=== PATIENT | male | born 1990 | race Caucasian/White ===

== ENCOUNTER 2018-03-11 12:59 | Emergency (ER) | payer BC, OTHER ==
[~2018-03-11] VITALS: Ht 185.4 cm; Wt 86.2 kg
--- NOTE | 2018-03-11 13:14 | ED GU-Male ---
General Stated Complaint: SWOLLEN TESTICLE Source: patient Exam Limitations: no limitations History of Present Illness Date Seen by Provider: Mar 11, 2018 Time Seen by Provider: 13:12 Initial Comments Patient is a 27-year-old male who presents to the emergency room with complaints of right-sided swollen testicle for one week. He reports that 1 week ago started with bilateral swelling of his testicles but now is just localized to the right testicle. He reports tenderness to the touch. He denies any discharge, painful urination, or painful ejaculation. Timing/Duration: week Severity/Quality: moderate Location: scrotal Radiation: none Activities at Onset: none Allergies and Home Medications Allergies Coded Allergies: No Known Drug Allergies (Unverified , 03/11/18) Home Medications Doxycycline Hyclate 100 Mg Capsule, 100 MG PO BID, (Reported) 10 DAY SUPPLY FILLED 03-11-18 Hydrocodone/Acetaminophen 1 Each Tablet, 1-2 TAB PO Q6H PRN for PAIN-MODERATE, ( Reported) Ibuprofen 200 Mg Tablet, 800 MG PO TID PRN for PAIN-MILD, (Reported) Patient Home Medication List Home Medication List Reviewed: Yes Review of Systems Constitutional: see HPI; No chills, No fever EENTM: no symptoms reported Respiratory: see HPI; No dyspnea on exertion, No hemoptysis Cardiovascular: see HPI; No chest pain, No edema Gastrointestinal: see HPI; No abdominal pain, No vomiting Genitourinary: see HPI; denies burning, denies discharge, denies dysuria, denies frequency, denies flank pain, denies hematuria; pain (right-sided testicular pain and swelling) Musculoskeletal: see HPI; No back pain, No gout Skin: see HPI; No change in color, No change in hair/nails Psychiatric/Neurological: See HPI; Denies Anxiety, Denies Depressed, Denies Emotional Problems Endocrine: See HPI; Denies Excessive Sweating, Denies Flushing Hematologic/Lymphatic: See HPI; Denies Anemia, Denies Blood Clots All Other Systemes Reviewed Negative Unless Noted: Yes Past Ruzqhqe-Wrkbyc-Noylel Hx Past Med/Social Hx: Reviewed Nursing Past Med/Soc Hx Patient Social History Recent Foreign Travel: No Contact w/Someone Who Travel: No Family Medical History Reviewed Nursing Family Hx Physical Exam Vital Signs Vital Signs - First Documented 03/11/18 13:13 Temp 99.2 Pulse 88 Resp 18 B/P (MAP) 116/86 (96) Pulse Ox 98 Capillary Refill : Height, Weight, BMI Height: '" Weight: lbs. oz. kg; BMI Method: General Appearance: WD/WN, no apparent distress HEENT: PERRL/EOMI, normal ENT inspection, TMs normal, pharynx normal Neck: non-tender, full range of motion, supple, normal inspection Cardiovascular: regular rate, rhythm, no edema, no gallop, no JVD, no murmur Respiratory: chest non-tender, lungs clear, normal breath sounds, no respiratory distress, no accessory muscle use Gastrointestinal: normal bowel sounds, non tender, soft, no organomegaly, no pulsatile mass Male: normal genitalia; No no hernia, No inguinal tenderness; testicular tenderness, other (right testicular swelling. Cremasteric reflex is present.) Back: normal inspection, no CVA tenderness, no vertebral tenderness Extremities: normal range of motion, non-tender, normal inspection, no pedal edema, no calf tenderness Neurologic/Psychiatric: alert, normal mood/affect, oriented x 3 Skin: normal color, warm/dry Lymphatic: no adenopathy Progress/Results/Core Measures Suspected Sepsis SIRS Temperature: Pulse: Respiratory Rate: Blood Pressure / Mean: Results/Orders Lab Results Laboratory Tests Test 03/11/18 13:15 Range/Units Urine Color YELLOW Urine Clarity VERY CLOUDY H Urine pH 6 5-9 Urine Specific [place] 1.025 H 1.016-1.022 Urine Protein 3+ H NEGATIVE Urine Glucose (UA) NEGATIVE NEGATIVE Urine Ketones 1+ H NEGATIVE Urine Nitrite NEGATIVE NEGATIVE Urine Bilirubin 1+ H NEGATIVE Urine Urobilinogen 4 H NORMAL MG/DL Urine Leukocyte Esterase 3+ H NEGATIVE Urine RBC (Auto) 2+ H NEGATIVE Urine RBC 2-5 H /HPF Urine WBC TNTC H /HPF Urine Squamous Epithelial Cells RARE /HPF Urine Crystals PRESENT H /LPF Urine Amorphous Sediment FEW HERRERA URATES H /LPF Urine Bacteria MODERATE H /HPF Urine Casts NONE /LPF Urine Mucus NEGATIVE /LPF Urine Culture Indicated YES Urine Chlamydia trachomatis RNA Detected H Not Detected Urine Neisseria gonorrhoeae RNA Detected H Not Detected Micro Results Microbiology 03/11/18 Urine Culture - Final, Complete NO GROWTH My Orders Orders - RHONDA LUNA Chlamydia Trachomatis Urine (03/11/18 13:09) Neavani Sim Dna Urine Test (03/11/18 13:09) Us Scrotum (Testicle) [id number] (03/11/18 13:09) Ua Culture If Indicated (03/11/18 13:09) Urine Culture (03/11/18 13:15) Ceftriaxone Injection (Rocephin Injectio (03/11/18 14:15) Lidocaine 1% Inj 20 Ml (Xylocaine 1% Inj (03/11/18 14:15) Im Injection Antibiotic Ed (03/11/18 ) Vital Signs/I&O 03/11/18 03/11/18 13:13 14:26 Temp 99.2 99.2 Pulse 88 88 Resp 18 18 B/P (MAP) 116/86 (96) 116/86 (96) Pulse Ox 98 98 Capillary Refill : Progress Note : Time: 14:22 Progress Note The patient was informed of his ultrasound results and was given a prescription for doxycycline 100 mg twice a day for 10 days. He was informed of the need for follow-up and a local physician list was provided for him. Denies need for pain medication at this time. Diagnostic Imaging Diagonstic Imaging: Ultrasound Comments NAME: ROCKY ADAN [facility] REC#: [id number] PT STATUS: DEP ER : 1990 PHYSICIAN: RHONDA LUNA ADMIT DATE: 03/11/18/ER Signed Date of Exam: 03/11/18 US SCROTUM (Testicle) [id number] Indication: Bilateral testicular pain. Right testicle measures 4.8 x 3.2 x 3.3 cm and the left testicle measures 4.3 x 2.3 x 3.0 cm. Both testes demonstrate a homogeneous echotexture. No discrete testicular mass is seen. There is blood flow to both testes. Both testes are somewhat prominent and appear hypervascular suggestive of epididymitis. There is a complex hydrocele on the right with multiple septations. Small left hydrocele is seen. IMPRESSION: 1. No evidence of testicular mass or vascular compromise. 2. Enlargement and hypervascularity bilateral epididymis suggestive of bilateral epididymitis. 3. Bilateral hydroceles, complex on the right which contains multiple septations. Dictated by: Dictated on workstation # [id number] Dict: 03/11/18 1400 Trans: 03/11/18 1528 Interpreted by: TERENCE SANTSO MD Electronically signed by: TERENCE SANTOS MD 03/11/18 1528 Reviewed: Reviewed by Me Departure Impression Primary Impression: Epididymitis, bilateral Disposition: 01 HOME, SELF-CARE Condition: Stable/Unchanged Departure-Patient Inst. Decision time for Depature: 14:19 Referrals: NO,LOCAL PHYSICIAN (PCP) Primary Care Physician [facility] Patient Instructions: Epididymitis (DC), LOCAL PHYSICIAN LIST Add. Discharge Instructions: Take medication as directed. Please keep in mind that the risk of sunburn is more likely on this medication, wear appropriate sun protection. Follow up with a doctor of your choice within 1 week for recheck. Return back to the emergency room for any concerns as needed especially if he should develop a fever, increased pain, or nausea and vomiting. Drink plenty of fluids. RHONDA LUNA Mar 11, 2018 13:14
[2018-03-11 13:23] LABS: CLARITY,URINE VERY CLOUDY; COLOR,URINE YELLOW; GLUCOSE, URINE (UA) NEGATIVE (NEGATIVE); KETONES,URINE 1+ (NEGATIVE); LEUKOCYTE ESTERASE ,URINE 3+ (NEGATIVE); NITRITE,URINE NEGATIVE (NEGATIVE); PH,URINE 6 (5-9); PROTEIN,URINE 3+ (NEGATIVE); UROBILINOGEN,URINE 4 MG/DL (NORMAL)
[2018-03-11 13:39] LABS: AMORPHOUS SEDIMENT,UR FEW AMOR URATES /LPF; BACTERIA,URINE MODERATE /HPF; BILIRUBIN,URINE 1+ (NEGATIVE); SQUAMOUS EPITHELIAL CELL,UR RARE /HPF; WBC,URINE TNTC /HPF
--- NOTE | 2018-03-11 14:03 | Diagnostic Imaging Report ---
Indication: Bilateral testicular pain. Right testicle measures 4.8 x 3.2 x 3.3 cm and the left testicle measures 4.3 x 2.3 x 3.0 cm. Both testes demonstrate a homogeneous echotexture. No discrete testicular mass is seen. There is blood flow to both testes. Both testes are somewhat prominent and appear hypervascular suggestive of epididymitis. There is a complex hydrocele on the right with multiple septations. Small left hydrocele is seen. IMPRESSION: 1. No evidence of testicular mass or vascular compromise. 2. Enlargement and hypervascularity bilateral epididymis suggestive of bilateral epididymitis. 3. Bilateral hydroceles, complex on the right which contains multiple septations. Dictated by: Dictated on workstation # [id number]
[2018-03-11] MEDS ORDERED: LIDOCAINE 1% INJ 20 ML 20 ML VIAL INJ ONE (14:15)
[2018-03-11] MEDS ORDERED: cefTRIAXone 1 GM (ROCEPHIN) VIAL IM ONE (14:15)
[2018-03-11 14:26] VITALS: BP 116/86
[2018-03-11] MEDS ORDERED: ACHD5005 PO (20:33)
--- OUTSIDE RECORDS SUMMARY | 2018-03-12 16:20 | XMS REPORT ---
Author Author HERMINIO AGUILA [facility] Address [address] [place] [address] Care Team Providers Care Strategic Planning Specialist Name Role Phone HERMINIO AGUILA Unavailable PROBLEMS Unknown Problems ALLERGIES No Known Allergies ENCOUNTERS Encounter Location Date Diagnosis [facility] [address] [facility] [id number] [place] [address] Jan, Acute upper respiratory infection, unspecified J06.9 IMMUNIZATIONS No Known Immunizations SOCIAL HISTORY Never Assessed REASON FOR VISIT Diarrhea and vomiting x2 days JStrasserRN PLAN OF CARE VITAL SIGNS Height 73 in 2017-02-23 Weight 192.2 lbs 2017-02-23 Temperature 98.7 degrees Fahrenheit 2017-02-23 Heart Rate 88 bpm 2017-02-23 Respiratory Rate 20 2017-02-23 BMI 25.35 kg/m2 2017-02-23 Blood pressure systolic 132 mmHg 2017-02-23 Blood pressure diastolic 86 mmHg 2017-02-23 MEDICATIONS No Known Medications RESULTS No Results PROCEDURES No Known procedures INSTRUCTIONS MEDICATIONS ADMINISTERED No Known Medications
== END 2018-03-11 14:35 | disposition home or self-care (01) ==
LOC: EDUNIT# 12:59 → ER 13:04
DX: N45.1 Epididymitis (principal)
CPT/HCPCS: 36415; 76870; 81000; 87088; 87491; 87591; 96372

== ENCOUNTER 2018-03-11 20:16 | Emergency (ER) | payer BC ==
[~2018-03-11] VITALS: Ht 182.9 cm; Wt 63.5 kg
[2018-03-11] MEDS ORDERED: HYDROcodone/APAP 7.5 MG/325 MG (LORTAB, LORCET PLUS) TABLET PO ONE (20:30)
[2018-03-11] MEDS ORDERED: RX-HYDROCODONE/APAP 5/325 MG #4 TAB PK PO ONE (20:31)
--- NOTE | 2018-03-11 20:31 | ED GU-Male ---
General Chief Complaint: -Male Stated Complaint: SWOLLEN TESTICLE,SEEN HERE TODAY,GOT WORSE Source: patient Exam Limitations: no limitations History of Present Illness Date Seen by Provider: Mar 11, 2018 Time Seen by Provider: 20:28 Initial Comments Patient is a 27-year-old male who presents to the emergency room with complaints of a right swollen testicle for one week. He was seen earlier in the emergency room by myself and his diagnosis was bilateral epididymitis that was diagnosed by ultrasound.. He reports that he did not want medication at the time but his pain has become worse. On exam his testicles are the same size as before. Timing/Duration: week Location: scrotal Radiation: none Sexual [place] History: single partner Associated Symptoms: No fever/chills; nausea/vomiting, swelling Allergies and Home Medications Allergies Coded Allergies: No Known Drug Allergies (Unverified , 03/11/18) Home Medications Doxycycline Hyclate 100 Mg Capsule, 100 MG PO BID, (Reported) 10 DAY SUPPLY FILLED 03-11-18 Hydrocodone/Acetaminophen 1 Each Tablet, 1-2 TAB PO Q6H PRN for PAIN-MODERATE, ( Reported) Ibuprofen 200 Mg Tablet, 800 MG PO TID PRN for PAIN-MILD, (Reported) Patient Home Medication List Home Medication List Reviewed: Yes Review of Systems Constitutional: see HPI; No chills, No diaphoresis, No fever EENTM: see HPI; No no symptoms reported, No ear discharge, No hearing loss Respiratory: no symptoms reported Cardiovascular: no symptoms reported Gastrointestinal: see HPI; No abdominal pain, No constipation Genitourinary: see HPI, pain Musculoskeletal: see HPI; No back pain, No gout Skin: see HPI; No change in color, No change in hair/nails Psychiatric/Neurological: See HPI; Denies Anxiety, Denies Depressed Endocrine: See HPI; Denies Excessive Sweating, Denies Flushing Hematologic/Lymphatic: See HPI; Denies Anemia All Other Systemes Reviewed Negative Unless Noted: Yes Past Dyyldei-Sxymky-Ttbuzo Hx Past Med/Social Hx: Reviewed Nursing Past Med/Soc Hx Patient Social History Type Used: Cigarettes 2nd Hand Smoke Exposure: Yes Recent Foreign Travel: No Contact w/Someone Who Travel: No Recent Hopitalizations: No Seasonal Allergies Seasonal Allergies: No Past Medical History Surgeries: No Respiratory: No Cardiac: No Neurological: No Genitourinary: No Gastrointestinal: No Musculoskeletal: No Endocrine: No HEENT: No Cancer: No Psychosocial: No Integumentary: No Blood Disorders: No Family Medical History Reviewed Nursing Family Hx Physical Exam Vital Signs Vital Signs - First Documented 03/11/18 20:30 Temp 101.6 Pulse 115 Resp 20 B/P (MAP) 115/77 (90) Pulse Ox 97 O2 Delivery Room Air Capillary Refill : Height, Weight, BMI Height: 6'1.00" Weight: 190lbs. 0oz. 86.647515rn; BMI Method:Stated General Appearance: WD/WN, no apparent distress HEENT: PERRL/EOMI, normal ENT inspection, TMs normal, pharynx normal Neck: non-tender, full range of motion, supple, normal inspection Cardiovascular: regular rate, rhythm, no edema, no gallop, no JVD, no murmur Respiratory: chest non-tender, lungs clear, normal breath sounds, no respiratory distress, no accessory muscle use Gastrointestinal: normal bowel sounds, non tender, soft, no organomegaly, no pulsatile mass Male: normal genitalia, no hernia, testicular tenderness (tenderness pain and swelling to the right testicle) Back: normal inspection, no CVA tenderness, no vertebral tenderness Extremities: normal range of motion, non-tender, normal inspection, no pedal edema, no calf tenderness Neurologic/Psychiatric: alert, normal mood/affect, oriented x 3 Skin: normal color, warm/dry Lymphatic: no adenopathy Progress/Results/Core Measures Suspected Sepsis SIRS Temperature: Pulse: Respiratory Rate: Blood Pressure / Mean: Results/Orders My Orders Orders - RHONDA LUNA Hydrocodone/Apap 7.5/325 Tab (Lortab 7. (03/11/18 20:30) Rx-Hydrocodone/Apap 5-325 Mg (Rx-Vicodin (03/11/18 20:45) Rx-Hydrocodone/Apap 5-325 Mg (Rx-Vicodin (03/11/18 20:31) Vital Signs/I&O 03/11/18 03/11/18 20:30 20:45 Temp 101.6 101.6 Pulse 115 115 Resp 20 20 B/P (MAP) 115/77 (90) 115/77 Pulse Ox 97 97 O2 Delivery Room Air Nasal Cannula Capillary Refill : Progress Note : Progress Note Prescription for hydrocodone and acetaminophen was sent home with the patient. Departure Impression Primary Impression: Ependymitis Disposition: HOME, SELF-CARE Condition: Stable/Unchanged Departure-Patient Inst. Decision time for Depature: 20:30 Referrals: NO,LOCAL PHYSICIAN (PCP) Primary Care Physician Patient Instructions: Epididymitis (DC) Add. Discharge Instructions: Continue antibiotics from previous visit. Take the pain medication as prescribed. You may add ibuprofen 800 mg every 6-8 hours for additional pain relief. Follow up with your doctor within 1 week for recheck. Return back to emergency room for any concerns as needed. All discharge instructions reviewed with patient and/or family. Voiced understanding. RHONDA LUNA Mar 11, 2018 20:31
[2018-03-11] MEDS ORDERED: ACHD5005 PO (20:33)
[2018-03-11 20:45] VITALS: BP 115/77
[2018-03-11] MEDS ORDERED: RX-HYDROCODONE/APAP 5/325 MG #4 TAB PK PO PRN (20:45)
== END 2018-03-11 20:45 | disposition home or self-care (01) ==
LOC: EDUNIT# 20:16 → ER 20:17
DX: N45.1 Epididymitis (principal); Z77.22 Contact with and (suspected) exposure to environmental tobacco smoke (acute) (chronic)
CPT/HCPCS: 99283

== ENCOUNTER 2018-03-13 17:11 | Inpatient (IN) | payer BC ==
[~2018-03-13] VITALS: Ht 185.4 cm; Wt 88.5 kg
[~2018-03-13 17:11] MED LIST: ACHD5005 PO
[2018-03-13] MEDS ORDERED: cefTRIAXone INJECTION 2,000 MG in NS (IVPB) 50 ML IV ONE (17:45)
[2018-03-13 17:56] LABS: BASOPHILS % (AUTO) 0 % (0-10); EOSINOPHILS # (AUTO) 0.1 10^3/uL (0.0-0.3); EOSINOPHILS % (AUTO) 0 % (0-10); HEMATOCRIT 39 % (40-54); HEMOGLOBIN 13.9 G/DL (13.3-17.7); LYMPHOCYTES # (AUTO) 1.6 X 10^3 (1.0-4.0); LYMPHOCYTES % (AUTO) 7 % (12-44); MEAN CORPUSCULAR HEMOGLOBIN 30 PG (25-34); MEAN CORPUSCULAR HGB CONC 36 G/DL (32-36); MEAN CORPUSCULAR VOLUME 85 FL (80-99); MEAN PLATELET VOLUME 12.3 FL (7.4-10.4); MONOCYTES # (AUTO) 1.4 X 10^3 (0.0-1.0); MONOCYTES % (AUTO) 6 % (0-12); NEUTROPHILS # (AUTO) 19.4 X 10^3 (1.8-7.8); NEUTROPHILS % (AUTO) 86 % (42-75); PLATELET COUNT 221 10^3/uL (130-400); RED CELL DISTRIBUTION WIDTH 12.3 % (10.0-14.5); WHITE BLOOD COUNT 22.5 10^3/uL (4.3-11.0)
[2018-03-13] MEDS ORDERED: fentaNYL INJECTION 100 MCG/2 ML AMP IVP ONE (18:00)
--- NOTE | 2018-03-13 18:00 | ED GU-Male ---
General Chief Complaint: -Male Stated Complaint: SWOLLEN TESTICLE Nursing Triage Note: PATIENT HERE AGAIN FOR CONCERNS ABOUT HIS TESTICLES. HE STATES THAT HIS TESTICLES APPEARS SLIGHTLY LARGER THAN WHEN HE WAS HERE THE OTHER DAY AND STATES IT "SHOULD BE BETTER BY NOW." Source: patient Exam Limitations: no limitations History of Present Illness Date Seen by Provider: Mar 13, 2018 Time Seen by Provider: 17:50 Initial Comments to ER with right-sided scrotal pain redness and swelling. This began about a week ago. He was seen here 2 days ago on the had a urinalysis,gonorrhea Chlamydia and ultrasound testing done. Both gonorrhea and chlamydia urine screening tests returned positive. Ultrasound showed bilateral epididymitis right greater than left and bilateral hydroceles with multiple septations. He was given a shot of Rocephin and discharged home on doxycycline orally. Today, 48 hours later, he denies improvement and in fact reports worsening redness swelling and pain. No fevers but he does notice "fevers in the scrotum". He has no history of this. No dysuria. Timing/Duration: constant Severity/Quality: moderate Location: scrotal Radiation: none Activities at Onset: none Prior Genitourinary Problems: none Sexual [place] History: not active Allergies and Home Medications Allergies Coded Allergies: No Known Drug Allergies (Unverified , 03/11/18) Home Medications Hydrocodone Bit/Acetaminophen 1 Tab Tab, 1-2 EACH PO Q6H PRN for PAIN-MODERATE Prescribed by: CLARI DONALDSON on 03/11/182032 Patient Home Medication List Home Medication List Reviewed: Yes Review of Systems Constitutional: see HPI EENTM: see HPI Respiratory: no symptoms reported Cardiovascular: no symptoms reported Genitourinary: see HPI, pain Musculoskeletal: no symptoms reported Skin: no symptoms reported Past Zhdzqhy-Viktby-Kfwioz Hx Patient Social History Alcohol Use: Denies Use Recreational Drug Use: No Smoking Status: Current Everyday Smoker Type Used: Cigarettes 2nd Hand Smoke Exposure: Yes Recent Foreign Travel: No Contact w/Someone Who Travel: No Recent Infectious Disease Expo: No Recent Hopitalizations: No Physical Abuse: No Sexual Abuse: No Seasonal Allergies Seasonal Allergies: No Past Medical History Surgeries: No Respiratory: No Cardiac: No Neurological: No Genitourinary: No Gastrointestinal: No Musculoskeletal: No Endocrine: No HEENT: No Cancer: No Psychosocial: No Nursing Suicide Risk Score: 0 Integumentary: No Blood Disorders: No Physical Exam Vital Signs Vital Signs - First Documented 03/13/18 17:15 Temp 97.8 Pulse 101 Resp 18 B/P (MAP) 116/99 (105) Pulse Ox 98 Capillary Refill : Less Than 3 Seconds Height, Weight, BMI Height: 6'1.00" Weight: 195lbs. 0oz. 88.155025tr; BMI Method:Stated General Appearance: WD/WN, no apparent distress HEENT: PERRL/EOMI, normal ENT inspection Neck: non-tender, full range of motion Cardiovascular: regular rate, rhythm, no murmur Respiratory: normal breath sounds, no respiratory distress, no accessory muscle use Gastrointestinal: normal bowel sounds, non tender, soft Male: testicular tenderness (the right testicle is tender swollen. The scrotum on the right feels adherent to the underlying testicle beneath. The right testicle is markedly enlarged scrotum is reddened and tender. The left side of the scrotum is not nearly as swollen or red or tender. There are no open wounds. There is no crepitus on palpation.) Neurologic/Psychiatric: alert, normal mood/affect, oriented x 3 Focused Exam Lactate Level Lactic Acid Level Progress/Results/Core Measures Suspected Sepsis Recent Fever Within 48 Hours: No Infection Criteria Present: None New/Unexplained Altered Menta: No Sepsis Screen: No Definite Risk SIRS Temperature:97.8 Pulse: 101 Respiratory Rate: 18 Blood Pressure 116 /99 Mean: 105 Results/Orders Lab Results My Orders Orders - PRADEEP ORTIZ APRN Cbc With Automated Diff (03/13/18 17:24) Us Scrotum (Testicle) [id number] (03/13/18 17:24) Comprehensive Metabolic Panel (03/13/18 17:24) Iv Heplock-Insert (Order) (03/13/18 17:24) Blood Culture (03/13/18 17:24) Lactic Acid Analyzer (03/13/18 17:24) Ceftriaxone Injection (Rocephin Injectio (03/13/18 17:45) Manual Differential (03/13/18 17:45) Vital Signs/I&O 03/13/18 17:15 Temp 97.8 Pulse 101 Resp 18 B/P (MAP) 116/99 (105) Pulse Ox 98 Capillary Refill : Less Than 3 Seconds Blood Pressure Mean: 105 Diagnostic Imaging Diagonstic Imaging: Xray Comments NAME: ROCKY ADAN [facility] REC#: [id number] PT STATUS: ADM IN : 1990 PHYSICIAN: PRADEEP ORTIZ APRN ADMIT DATE: 03/13/18 Draft Date of Exam:03/13/18 US SCROTUM (Testicle) [id number] INDICATION: Increasing right scrotal pain. COMPARISON: 03/11/2018. FINDINGS: The right testicle measures 4.8 x 3.7 x 3.8 cm and has increased overall slightly in size since the previous exam. Color Doppler imaging shows hypervascularity of the right testicle now. There are no focal masses. The right epididymis is enlarged and hypervascular as well. There is a septated hydrocele on the right which is unchanged. The left testicle remains unchanged measuring 4 x 2.5 x 2.9 cm. Normal blood flow to the left testis. The left epididymis has decreased in size and appears less vascular. No evidence of hydrocele on the left. IMPRESSION: 1. Increasing right testicular size and vascularity is consistent with developing orchitis on the right. Continued changes of epididymitis on the right with complex septated hydrocele again present. Dictated on workstation # [id number] Dict: 03/13/18 1843 Trans: 03/13/18 1854 [id number] Interpreted by: SARAH TERAN MD Electronically signed by: Departure Communication (Admissions) Time/Spoke to Admitting Phy: 19:[address] Jnue, hospitalist. He agrees to admit.patient's is at the bedside. I did obtain the patient's consentto discuss his urine chlamydia and gonorrhea results with him in front of his . He states "yeah, that's my . So I did notify him of the positive chlamydia and gonorrhea screening 2 days ago. 1750-I spoke with Dr. Jensen from urology. Recommends repeating an ultrasound to rule out abscess. Rocephin 2 g IV daily and Levaquin 750 mg IV daily. We will admit to the hospitalist and consult Dr. Jensen, he'll see in the morning. Impression Primary Impression: Cellulitis of scrotum Additional Impression: Epididymitis, bilateral Disposition: ADMITTED INPATIENT Condition: Stable Admissions Decision to Admit Reason: Admit from ER (General) Decision to Admit/Date: Mar 13, 2018 Time/Decision to Admit Time: 18:00 Departure-Patient Inst. Referrals: NO,LOCAL PHYSICIAN (PCP/Family) Primary Care Physician PRADEEP ORTIZ APRN Mar 13, 2018 18:00
[2018-03-13 18:13] LABS: ALANINE AMINOTRANSFERASE 13 U/L (0-55); ALBUMIN 3.6 GM/DL (3.2-4.5); ALKALINE PHOSPHATASE 81 U/L (40-136); BILIRUBIN,TOTAL 0.3 MG/DL (0.1-1.0); BUN/CREATININE RATIO 10; CALCIUM 9.4 MG/DL (8.5-10.1); CARBON DIOXIDE 23 MMOL/L (21-32); CHLORIDE 106 MMOL/L (98-107); CREATININE SERUM 0.78 MG/DL (0.60-1.30); GFR ESTIMATED > 60; GLUCOSE 120 MG/DL (70-105); POTASSIUM 3.8 MMOL/L (3.6-5.0); SODIUM 137 MMOL/L (135-145); TOTAL PROTEIN 6.7 GM/DL (6.4-8.2)
[2018-03-13 18:14] LABS: BAND NEUTROPHILS 0 %; BASOPHILS % (MANUAL) 0 %; EOSINOPHILS % (MANUAL) 0 %; LYMPHOCYTES % (MANUAL) 6 %; MONOCYTES % (MANUAL) 0 %; NEUTROPHILS % (MANUAL) 94 %; RBC MORPH NORMAL
[2018-03-13] MEDS ORDERED: DOXYCYCLINE INJECTION 100 MG in NS (IVPB) 100 ML IV ONE (18:15)
[2018-03-13] MEDS ORDERED: AZITHROMYCIN 250 MG TAB (ZITHROMAX) PO SCH (18:15)
--- NOTE | 2018-03-13 18:55 | Diagnostic Imaging Report ---
INDICATION: Increasing right scrotal pain. COMPARISON: 03/11/2018. FINDINGS: The right testicle measures 4.8 x 3.7 x 3.8 cm and has increased overall slightly in size since the previous exam. Color Doppler imaging shows hypervascularity of the right testicle now. There are no focal masses. The right epididymis is enlarged and hypervascular as well. There is a septated hydrocele on the right which is unchanged. The left testicle remains unchanged measuring 4 x 2.5 x 2.9 cm. Normal blood flow to the left testis. The left epididymis has decreased in size and appears less vascular. No evidence of hydrocele on the left. IMPRESSION: 1. Increasing right testicular size and vascularity is consistent with developing orchitis on the right. Continued changes of epididymitis on the right with complex septated hydrocele again present. Dictated by: Dictated on workstation # [id number]
[2018-03-13 19:20] VITALS: BP 121/75
[2018-03-13] MEDS ORDERED: HYDROcodone/APAP 5 MG/325 MG (LORTAB) TAB PO PRN (19:45)
[2018-03-13] MEDS ORDERED: fentaNYL INJECTION 100 MCG/2 ML AMP IV PRN (19:45)
[2018-03-13] MEDS: NS IV 1000 ML 1,000 ML IV SCH (20:15)
[2018-03-13] MEDS: LEVOFLOXACIN 750 MG/D5W 150 ML PRE-MIX IV SCH (20:15)
[2018-03-13] MEDS: DOCUSATE SODIUM 100 MG (COLACE) CAP PO SCH (20:15)
[2018-03-13 20:33] LABS: BILIRUBIN,URINE NEGATIVE (NEGATIVE); CLARITY,URINE CLEAR; COLOR,URINE YELLOW; GLUCOSE, URINE (UA) NEGATIVE (NEGATIVE); KETONES,URINE NEGATIVE (NEGATIVE); LEUKOCYTE ESTERASE ,URINE 1+ (NEGATIVE); NITRITE,URINE NEGATIVE (NEGATIVE); PH,URINE 8 (5-9); PROTEIN,URINE NEGATIVE (NEGATIVE); UROBILINOGEN,URINE NORMAL (NORMAL)
[2018-03-13 20:48] LABS: BACTERIA,URINE NEGATIVE /HPF
[2018-03-14 00:40] VITALS: BP 117/64
[2018-03-14] MEDS: NS IV 1000 ML 1,000 ML IV SCH ×2 (04:14→11:44)
[2018-03-14 04:27] VITALS: BP 120/63
[2018-03-14 05:59] LABS: BASOPHILS % (AUTO) 0 % (0-10); EOSINOPHILS # (AUTO) 0.1 10^3/uL (0.0-0.3); EOSINOPHILS % (AUTO) 1 % (0-10); HEMATOCRIT 39 % (40-54); HEMOGLOBIN 13.4 G/DL (13.3-17.7); LYMPHOCYTES # (AUTO) 2.2 X 10^3 (1.0-4.0); LYMPHOCYTES % (AUTO) 16 % (12-44); MEAN CORPUSCULAR HEMOGLOBIN 29 PG (25-34); MEAN CORPUSCULAR HGB CONC 34 G/DL (32-36); MEAN CORPUSCULAR VOLUME 86 FL (80-99); MEAN PLATELET VOLUME 11.8 FL (7.4-10.4); MONOCYTES # (AUTO) 1.1 X 10^3 (0.0-1.0); MONOCYTES % (AUTO) 8 % (0-12); NEUTROPHILS # (AUTO) 10.8 X 10^3 (1.8-7.8); NEUTROPHILS % (AUTO) 76 % (42-75); PLATELET COUNT 222 10^3/uL (130-400); RED BLOOD COUNT 4.56 10^6/uL (4.35-5.85); RED CELL DISTRIBUTION WIDTH 12.6 % (10.0-14.5); WHITE BLOOD COUNT 14.2 10^3/uL (4.3-11.0)
[2018-03-14 06:18] LABS: ALANINE AMINOTRANSFERASE 16 U/L (0-55); ALBUMIN 3.4 GM/DL (3.2-4.5); ALKALINE PHOSPHATASE 74 U/L (40-136); BILIRUBIN,TOTAL 0.3 MG/DL (0.1-1.0); BUN/CREATININE RATIO 8; CALCIUM 9.5 MG/DL (8.5-10.1); CARBON DIOXIDE 23 MMOL/L (21-32); CHLORIDE 110 MMOL/L (98-107); CREATININE SERUM 0.77 MG/DL (0.60-1.30); GFR ESTIMATED > 60; GLUCOSE 96 MG/DL (70-105); POTASSIUM 4.2 MMOL/L (3.6-5.0); SODIUM 140 MMOL/L (135-145); TOTAL PROTEIN 6.3 GM/DL (6.4-8.2)
[2018-03-14] MEDS: DOCUSATE SODIUM 100 MG (COLACE) CAP PO SCH ×2 (07:50→20:17)
[2018-03-14 08:00] VITALS: BP 104/64
[2018-03-14] MEDS ORDERED: DOXY100C2 PO (08:49)
[2018-03-14] MEDS ORDERED: HYDR-3812 PO (08:49)
[2018-03-14] MEDS ORDERED: IBUP-30 PO (08:49)
--- NOTE | 2018-03-14 10:39 | History & Physical-Hospitalist ---
History of Present Illness HPI/Chief Complaint Mr. Moreno is a 27-year-old white male who reports she's feeling well up until approximately 10 days ago when he noted the onset of right testicular pain. He denied discharge frequency or dysuria or ulceration in the genital area or elsewhere. Roughly 14 days ago he had reunited with his after separation is only reported sexual contact. She is aware of his diagnosis of gonorrhea as well as chlamydia which was noted on urethral swab upon ER presentation on the of this month. He was given Rocephin and azithromycin and discharged on doxycycline which she reports he complied with. Despite this he developed increased right testicular pain and swelling with redness. He denied night sweats chills fever or dysuria. He had no difficulty with urination. He underwent ultrasonography last night which is compatible with right orchitis and epididymitis and is been admitted for IV antibiotics. Currently reports feeling better in regards to testicular pain this morning than he did last night and has been at bedrest. He voices no other complaints. He's had no previous history of epididymitis orchitis or known venereal disease. Date Seen 03/14/18 Time Seen by Provider: 10:39 Attending Physician Mak Pino M.D. PCP No,Local Physician Referring Physician Date of Admission Mar 13, 2018 at 17:40 Home Medications & Allergies Home Medications Reviewed patient Home Medication Reconciliation performed by pharmacy medication reconciliations mold maintenance technician and/or nursing. Patients Allergies have been reviewed. Allergies Allergies Coded Allergies No Known Drug Allergies (Unverified03/11/18) Past Awsuwzx-Aevdwa-Uiwmhh Hx Past Med/Social Hx: Reviewed and Corrections made Patient Social History Alcohol Use: Denies Use Recreational Drug Use: No Smoking Status: Current Everyday Smoker Type Used: Cigarettes 2nd Hand Smoke Exposure: Yes Physical Abuse Screen: No Sexual Abuse: No Recent Foreign Travel: No Contact w/other who traveled: No Recent Hopitalizations: No Recent Infectious Disease Expo: No Seasonal Allergies Seasonal Allergies: No Past Medical History History of Blood Disorders: No Family History Patient reports no known family medical history. Review of Systems Constitutional: no symptoms reported; No see HPI, No chills, No diaphoresis, No dizziness, No fever, No malaise, No weakness Respiratory: no symptoms reported Cardiovascular: no symptoms reported Gastrointestinal: no symptoms reported Genitourinary: see HPI Physical Exam Physical Exam Vital Signs Vital Signs - First Documented 03/13/18 17:15 Temp 97.8 Pulse 101 Resp 18 B/P (MAP) 116/99 (105) Pulse Ox 98 Capillary Refill : Less Than 3 SecondsLess Than 3 Seconds Height, Weight, BMI Height: 6'1.00" Weight: 195lbs. 0.0oz. [id number]; 25.7 BMI Method:Stated General Appearance: No Apparent Distress, WD/WN HEENT: PERRL/EOMI, Normal ENT Inspection, Pharynx Normal Respiratory: Chest Non Tender, Lungs Clear, Normal Breath Sounds, No Accessory Muscle Use, No Respiratory Distress Cardiovascular: Regular Rate, Rhythm, No Edema, No Gallop, No JVD, No Murmur, Normal Peripheral Pulses Gastrointestinal: Normal Bowel Sounds, No Organomegaly, No Pulsatile Mass, Non Tender, Soft Genital/Rectal: Other (Right testicle is enlarged firm and tender. There is overlying scrotal erythema without scrotal induration. No inguinal adenopathy is appreciated. Patient is circumcised no general skin abnormalities noted otherwise with no ulceration or inflammatory change being noted. The meatus is unremarkable without evidence for erythema.) Neurologic/Psychiatric: Alert, Oriented x3, No Motor/Sensory Deficits, Normal Mood/Affect Results Results/Procedures Labs Laboratory Tests 03/13/18 17:45 03/14/18 05:40 Patient resulted labs reviewed. Assessment/Plan Admission Diagnosis 1. Acute orchitis and epididymitis with recent positive chlamydia as well as gonorrhea swabs. This involves the right testicle. Patient is currently on Rocephin and Levaquin will continue. Appreciate urology consultation with Dr. Jensen. Reportedly all sexual contacts have been notified and advised to seek treatment. Patient reports he said no other actual contacts other than his whom he had been from up until recently. Admission Status: Inpatient Order (span 2 midnights) Reason for Inpatient Admission: See above Clinical Quality Measures DVT/VTE Risk/Contraindication: Risk Factor Score Per Nursin RFS Level Per Nursing on Admit: 2=Moderate MAK PINO MD Mar 14, 2018 10:39
--- NOTE | 2018-03-14 12:33 | CONSULTATION REPORT ---
DATE OF SERVICE: 03/14/2018 SUMMARY: A 27-year-old white male, who initially presented to the emergency room on Tuesday complaining of pain and swelling of the left testicle. Ultrasound was obtained confirming a right epididymitis with some mild on the left side. He was given the appropriate antibiotic and sent home; however, he came back last night to the emergency room with worsening of the symptoms and the pain and swelling. An ultrasound was obtained that ruled out testicular abscess, which showed only right orchitis and improvement of the left epididymitis, but still epididymo-orchitis on the right side. We went ahead and admitted the patient and put him on bed rest with bathroom privilege, started him on Rocephin 1 gram every 24 hours and Levaquin 750 every 24 hours IV, scrotal support and ice. He is doing better this morning. He said the swelling is somewhat better as well as the pain. PHYSICAL EXAMINATION: On physical exam, phallus adequate meatus. The left testicle epididymis are down and normal. The right side reveal epididymitis with some orchitis. No cellulitis. His abdomen is soft and he is in no acute distress. Lab work was reviewed and reasonable and he is afebrile. IMPRESSION: Right epididymo-orchitis. PLAN: Continue above management and we will follow up on a daily basis. Job ID: [id number] DocumentID: [id number] Dictated Date: 03/14/2018 08:54:45 Cigarette Making Examiner Date: 03/14/2018 12:33:13 Dictated By: BENIGNO AYOUB MD
[2018-03-14] MEDS: IBUPROFEN 600 MG (MOTRIN) TAB PO SCH ×2 (13:41→20:17)
[2018-03-14 16:47] VITALS: BP 118/70
[2018-03-14] MEDS: cefTRIAXone 1 GM/NS 50 ML IVPB IV SCH ×2 (17:28)
[2018-03-14] MEDS: LEVOFLOXACIN 750 MG/D5W 150 ML PRE-MIX IV SCH (20:19)
[2018-03-15 00:38] VITALS: BP 136/83
[2018-03-15] MEDS: IBUPROFEN 600 MG (MOTRIN) TAB PO SCH ×3 (05:55→21:51)
[2018-03-15] MEDS: DOCUSATE SODIUM 100 MG (COLACE) CAP PO SCH ×2 (08:05→20:26)
[2018-03-15 08:22] VITALS: BP 133/82
--- NOTE | 2018-03-15 08:40 | Progress Note-Hospitalist ---
Subjective HPI/CC On Admission Date Seen by Provider: Mar 15, 2018 Time Seen by Provider: 08:00 Mr. Moreno is a 27-year-old white male who reports she's feeling well up until approximately 10 days ago when he noted the onset of right testicular pain. He denied discharge frequency or dysuria or ulceration in the genital area or elsewhere. Roughly 14 days ago he had reunited with his after separation is only reported sexual contact. She is aware of his diagnosis of gonorrhea as well as chlamydia which was noted on urethral swab upon ER presentation on the of this month. He was given Rocephin and azithromycin and discharged on doxycycline which she reports he complied with. Despite this he developed increased right testicular pain and swelling with redness. He denied night sweats chills fever or dysuria. He had no difficulty with urination. He underwent ultrasonography last night which is compatible with right orchitis and epididymitis and is been admitted for IV antibiotics. Currently reports feeling better in regards to testicular pain this morning than he did last night and has been at bedrest. He voices no other complaints. He's had no previous history of epididymitis orchitis or known venereal disease. Subjective/Events-last exam Patient reports his pain is resolved in regards to right testicle he said no night sweats chills fever or nausea. He voices no complaints and is asking about discharge timing. Focused Exam Lactate Level 03/13/18 17:45: Lactic Acid Level 1.54 Objective Exam Vital Signs Vital Signs Date Time Temp Pulse Resp B/P (MAP) Pulse Ox O2 Delivery O2 Flow Rate FiO2 03/16/18 07:46 97.4 49 16 114/71 (85) 99 Room Air Capillary Refill : Less Than 3 SecondsLess Than 3 Seconds General Appearance: No Apparent Distress, WD/WN Respiratory: Chest Non Tender, Lungs Clear, Normal Breath Sounds, No Accessory Muscle Use, No Respiratory Distress Cardiovascular: Regular Rate, Rhythm, No Edema, No Gallop, No JVD, No Murmur, Normal Peripheral Pulses Genital/Rectal: Other (Decreased erythema and swelling of the right testicle minimal tenderness to palpation induration diminishing as well.) Results/Procedures Lab Patient resulted labs reviewed. Assessment/Plan Assessment and Plan Assess & Plan/Chief Complaint 1. Right epididymoorchitis in an individual with positive urethral swab for chlamydia and gonorrhea responding well to Rocephin and Levaquin. Plan 1 more day of IV antibiotic therapy and if agreeable with Dr. Jensen discharge tomorrow. Clinical Quality Measures DVT/VTE Risk/Contraindication: Risk Factor Score Per Nursin RFS Level Per Nursing on Admit: 2=Moderate MAK PINO MD Mar 15, 2018 08:40
--- NOTE | 2018-03-15 11:14 | Progress Note-Urology ---
Progress Note-Urology Progress Notes/Assess & Plan Progress/Assessment & Plan DOING BETTER SUBJECTIVELY AND OBJECTIVELY. CONTINUE SAME Final Diagnosis RT EPIDIDYMOORCHITIS BENIGNO AYOUB MD Mar 15, 2018 11:14 am
[2018-03-15 16:00] VITALS: BP 138/75
[2018-03-15] MEDS: cefTRIAXone 1 GM/NS 50 ML IVPB IV SCH ×2 (17:32)
[2018-03-15] MEDS: LEVOFLOXACIN 750 MG/D5W 150 ML PRE-MIX IV SCH (20:26)
[2018-03-15 23:59] VITALS: BP 137/75
[2018-03-16] MEDS: IBUPROFEN 600 MG (MOTRIN) TAB PO SCH (06:22)
[2018-03-16 07:46] VITALS: BP 114/71
--- NOTE | 2018-03-16 08:19 | Discharge Summary-Hospitalist ---
Diagnosis/Chief Complaint Date of Admission Mar 13, 2018 at 17:40 Date of Discharge Discharge Date: Mar 16, 2018 Admission Diagnosis 1. Acute orchitis and epididymitis with recent positive chlamydia as well as gonorrhea swabs. This involves the right testicle. Patient is currently on Rocephin and Levaquin will continue. Appreciate urology consultation with Dr. Jensen. Reportedly all sexual contacts have been notified and advised to seek treatment. Patient reports he said no other actual contacts other than his whom he had been from up until recently. Discharge Diagnosis As per admission diagnosis Discharge Summary Discharge Physical Exam Allergies: Coded Allergies: No Known Drug Allergies (Unverified , 03/11/18) Vitals & I&Os Vital Signs Date Time Temp Pulse Resp B/P (MAP) Pulse Ox O2 Delivery O2 Flow Rate FiO2 03/16/18 07:46 97.4 49 16 114/71 (85) 99 Room Air General Appearance: Alert, Oriented X3 Respiratory: Clear to Auscultation Cardiovascular: Regular Rate, No Murmurs Extremities: Other (Right testicle and epididymis still slightly firm minimally tender diminished swelling and scrotal erythema significantly resolved mild superficial skin desquamation) Hospital Course Mr. Moreno is a 27-year-old white male who reports she's feeling well up until approximately 10 days ago when he noted the onset of right testicular pain. He denied discharge frequency or dysuria or ulceration in the genital area or elsewhere. Roughly 14 days ago he had reunited with his after separation is only reported sexual contact. She is aware of his diagnosis of gonorrhea as well as chlamydia which was noted on urethral swab upon ER presentation on the of this month. He was given Rocephin and azithromycin and discharged on doxycycline which she reports he complied with. Despite this he developed increased right testicular pain and swelling with redness. He denied night sweats chills fever or dysuria. He had no difficulty with urination. He underwent ultrasonography last night which is compatible with right orchitis and epididymitis and is been admitted for IV antibiotics. Currently reports feeling better in regards to testicular pain this morning than he did last night and has been at bedrest. He voices no other complaints. He's had no previous history of epididymitis orchitis or known venereal disease. Subjective/Events-last exam patient was admitted and Rocephin and Levaquin were initiated with significant improvement in swelling erythema and resolution of pain over the next 72 hours. His is receiving treatment for gonorrhea and chlamydia and reportedly her sexual contact is being evaluated/treated as well. Patient will be discharged later today if okay with urology. We will defer antibiotic selection and duration to urology. Labs (last 24 hrs) Microbiology 03/13/18 Blood Culture - Preliminary, Resulted No growth Patient resulted labs reviewed. Discussion & Recommendations Discharge Planning: <30 minutes discharge planning Discharge Home Medications: Active Scripts Active Reported Hydrocodone-Acetamin 5-325 mg (Hydrocodone/Acetaminophen) 1 Each Tablet 1-2 Tab PO Q6H PRN Doxycycline Hyclate 100 Mg Capsule 100 Mg PO BID 10 Days 10 DAY SUPPLY FILLED 03-11-18 Advil (Ibuprofen) 200 Mg Tablet 800 Mg PO TID PRN Instructions to patient/family Please see electronic discharge instructions given to patient. Clinical Quality Measures DVT/VTE Risk/Contraindication: Risk Factor Score Per Nursin RFS Level Per Nursing on Admit: 2=Moderate MAK PINO MD Mar 16, 2018 08:19
[2018-03-16] MEDS: DOCUSATE SODIUM 100 MG (COLACE) CAP PO SCH (09:19)
--- NOTE | 2018-03-16 10:48 | Progress Note-Urology ---
Progress Note-Urology Progress Notes/Assess & Plan Progress/Assessment & Plan CONTINUES IMPROVING. HOME TODAY. INSTRUCTIONS GIVEN NO HEAVY LIFTING OR STRAINING. SCROTAL SUPPORT. FINISH VIBRAMYCIN. RX LEVAQUIN. OFFICE 2 WEEKS. ED PRN Final Diagnosis RT EPIDIDYMOORCHITIS BENIGNO AYOUB MD Mar 16, 2018 10:48 am
[2018-03-16] MEDS ORDERED: LEVO500T2 PO (11:02)
[2018-03-16 11:20] VITALS: BP 114/71
[2018-03-16] MEDS ORDERED: LEVOFLOXACIN 750 MG TAB (LEVAQUIN) PO SCH (21:00)
== END 2018-03-16 11:20 | disposition home or self-care (01) | DRG 728 ==
LOC: EDUNIT# 17:11 → ER 17:12 → 4TH 17:40
PROVIDERS: ADMIT Internal Medicine; ATTEND Internal Medicine
DX: N45.3 Epididymo-orchitis (principal); A54.89 Other gonococcal infections; A56.19 Other chlamydial genitourinary infection
CPT/HCPCS: 36415; 76870; 80053; 81000; 83605; 85007; 85025; 85027; 87040; 96365; 96367; 96368; 96375